=== PATIENT | male | born 1970 | race African-American/Black ===

== ENCOUNTER 2018-04-23 07:04 | Emergency (ER) | payer MEDICAID ==
[~2018-04-23] VITALS: Ht 177.8 cm; Wt 99.8 kg
[~2018-04-23 07:04] MED LIST: CYCLOBENZAPRINE10 MG ORAL; IBUPROFEN600 MG ORAL; NAPROXEN500 M1 PO; SOMA350 MG PO
[2018-04-23 07:12] VITALS: BP 143/77
[2018-04-23] MEDS ORDERED: NKM (07:15)
--- NOTE | 2018-04-23 07:39 | Emergency Room Report ---
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 He feels that when he does these movements the pain is significantly worsened Denies any swelling or erythema Pain does radiate down the forearm Allergies: Coded Allergies: No Known Allergies (Unverified , 11/27/12) Patient History Past Medical History: see triage record Pertinent Family History: none Reviewed Nursing Documentation: PMH: Agreed; PSxH: Agreed Nursing Documentation-PMH Past Medical History: No History, Except For Hx Hypertension: Yes Review of Systems All Other Systems: negative except mentioned in HPI Physical Exam Vital Signs Date Time Temp Pulse Resp B/P (MAP) Pulse Ox O2 Delivery O2 Flow Rate FiO2 04/23/18 07:12 97.8 77 14 143/77 99 Room Air 97.9 Sp02 EP Interpretation: reviewed, normal General Appearance: well appearing, no apparent distress Head: normocephalic, atraumatic Eyes: bilateral eye PERRL, bilateral eye EOMI ENT: normal pharynx, no angioedema Neck: full range of motion, supple, thyroid normal Respiratory: lungs clear Cardiovascular #1: regular rate, rhythm Musculoskeletal: other - Tender on the lateral epicondyle on palpation, supinating and pronating the forearm causes discomfort at the lateral elbow on the left side, no obvious joint effusion no erythema, 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 physician for further evaluation and testing as outpatient basis he was provided with anti-inflammatory and rest for the next 2-3 days Last Vital Signs Date Time Temp Pulse Resp B/P (MAP) Pulse Ox O2 Delivery O2 Flow Rate FiO2 04/23/18 07:12 97.8 77 14 143/77 99 Room Air 97.9 Status: unchanged Disposition: HOME, SELF-CARE Condition: Stable Referrals: RACHID GOMEZREFERRING (PCP) Additional Instructions: Patient is provided with the discharge instructions notified to follow up with primary doctor in the next 2-3 days otherwise return to the er with any worsening symptoms. Please note that this report is being documented using [employer] technology. This can lead to erroneous entry secondary to incorrect interpretation by the dictating instrument. Willie Ly DO Apr 23, 2018 07:39
[2018-04-23] MEDS ORDERED: IBUPROFEN600 MG ORAL (07:41)
[2018-04-23 07:55] VITALS: BP 143/77
== END 2018-04-23 08:07 | disposition home or self-care (01) ==
LOC: EMR 07:34
DX: M77.9 Enthesopathy, unspecified (principal); I10 Essential (primary) hypertension
CPT/HCPCS: 99282